=== PATIENT | female | born 1965 | race Caucasian/White ===

== ENCOUNTER 2017-02-18 08:17 | Emergency (ER) | payer OTHER ==
[~2017-02-18] VITALS: Ht 160 cm; Wt 62.6 kg
[2017-02-18 08:20] VITALS: TEMP 36.4; Ht 160 cm; Wt 62.6 kg
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
[2017-02-18 09:55] VITALS: BP 112/76; PULSE 73; O2SAT 100
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
== END 2017-02-18 09:56 | disposition home or self-care (01) ==
LOC: C.EDB 08:19
DX: R51 Headache (principal); V43.52XA Car driver injured in collision with other type car in traffic accident, initial encounter; Y92.488 Other paved roadways as the place of occurrence of the external cause